=== PATIENT | female | born 1960 | race Caucasian/White ===

== ENCOUNTER → 2023-11-29 07:32 | Outpatient (REF) | payer BC, SELFPAY ==
[2023-11-29 08:25] LABS: % Basophils 1.2 % (0-2); % Eosinophils 2.8 % (0-6); % Immature Granulocytes 0.4 % (0-0.5); % Lymphocytes 35.1 % (20.5-51.1); % Monocytes 9.3 % (1.7-9.3); % Neutrophils 51.2 % (42.2-75.2); Absolute Basophils 0.1 10^3/uL (0-0.2); Absolute Eosinophils 0.1 10^3/uL (0-0.7); Absolute Lymphocytes 1.7 10^3/uL (1.2-3.4); Absolute Monocytes 0.5 10^3/uL (0.1-0.6); Absolute Neutrophils 2.5 10^3/uL (1.4-6.5); Hematocrit 41.5 % (37.0-47.0); Hemoglobin 13.8 g/dL (12.0-16.0); Mean Corp Hgb Conc. 33.3 g/dL (33.0-37.0); Mean Corpuscular Hgb 28.2 pg (27.0-31.0); Mean Corpuscular Volume 84.7 fL (81.0-99.0); Mean Platelet Volume 11.2 fL (7.4-10.4); Nucleated Red Blood Cells % 0 %; Platelet Count 205 10^3/uL (130-400); Red Cell Dist. Width 14.5 % (11.5-14.5); White Blood Cell Count 4.9 10^3/uL (4.8-10.8)
[2023-11-29 08:57] LABS: ALT (SGPT) < 10 U/L (0-35); AST (SGOT) 28 U/L (14-36); Albumin 4.3 g/dl (3.5-5.0); Alkaline Phosphatase 62 U/L (38-126); Blood Urea Nitrogen 22 mg/dl (7-17); Carbon Dioxide 31 mmol/L (22-30); Chloride 102 mmol/L (98-107); Glucose 85 mg/dl (70-99); HDL Cholesterol 82 mg/dl; LDL Cholesterol, Calculated 115 mg/dl; Potassium 4.5 mmol/L (3.5-5.1); Sodium 142 mmol/L (135-145); Total Bilirubin 0.9 mg/dl (0.2-1.3); Total Cholesterol 210 mg/dl (50-199); Total Protein 6.7 g/dl (6.3-8.2); Triglyceride 65 mg/dl (10-149); Very Low Density Lipoprotein 13 mg/dl (0-30); eGFR 56.81
[2023-11-29 09:25] LABS: TSH Reflex To Free T4 4.58 uIU/ml (0.47-4.68)
== END ==
LOC: REG 07:32
PROVIDERS: ATTENDING PHYSICIAN Family Medicine
DX: Z13.0 Encounter for screening for diseases of the blood and blood-forming organs and certain disorders involving the immune mechanism (principal); Z13.29 Encounter for screening for other suspected endocrine disorder; Z13.228 Encounter for screening for other metabolic disorders; Z13.220 Encounter for screening for lipoid disorders; Z13.1 Encounter for screening for diabetes mellitus
CPT/HCPCS: 36415; 80053; 80061; 84443; 85025

== ENCOUNTER → 2024-02-24 06:40 | Day surgery (SDC) | payer BC, SELFPAY | LOC: GI 06:40 | PROVIDERS: ATTENDING PHYSICIAN Internal Medicine | DX: Z12.11 Encounter for screening for malignant neoplasm of colon (principal); D12.2 Benign neoplasm of ascending colon; D12.3 Benign neoplasm of transverse colon; D12.5 Benign neoplasm of sigmoid colon; K57.30 Diverticulosis of large intestine without perforation or abscess without bleeding; K62.89 Other specified diseases of anus and rectum; K64.9 Unspecified hemorrhoids; Z86.0101 Personal history of adenomatous and serrated colon polyps | CPT/HCPCS: 45385; 45380; 88305 ==

== ENCOUNTER → 2024-06-02 14:08 | Outpatient (REF) | payer BC, SELFPAY | LOC: WDC 14:08 | PROVIDERS: ATTENDING PHYSICIAN Family Medicine | DX: Z12.31 Encounter for screening mammogram for malignant neoplasm of breast (principal) | CPT/HCPCS: 77063; 77067 ==

== ENCOUNTER → 2024-11-28 09:10 | Outpatient (REF) | payer BC, SELFPAY ==
[2024-11-28 09:48] LABS: Hematocrit 41.9 % (37.0-47.0); Hemoglobin 13.7 g/dL (12.0-16.0); Mean Corp Hgb Conc. 32.7 g/dL (33.0-37.0); Mean Corpuscular Volume 87.1 fL (81.0-99.0); Nucleated Red Blood Cells % 0 %; Platelet Count 208 10^3/uL (130-400); Red Cell Dist. Width 13.2 % (11.5-14.5)
[2024-11-28 14:50] LABS: ALT (SGPT) 29 U/L (0-35); AST (SGOT) 89 U/L (14-36); Albumin 4.6 g/dl (3.5-5.0); Alkaline Phosphatase 65 U/L (38-126); Blood Urea Nitrogen 19 mg/dl (7-17); Calcium 10.3 mg/dl (8.4-10.2); Carbon Dioxide 30 mmol/L (22-30); Chloride 105 mmol/L (98-107); Glucose 83 mg/dl (70-99); HDL Cholesterol 93 mg/dl; LDL Cholesterol, Calculated 110 mg/dl; Potassium 5.1 mmol/L (3.5-5.1); Sodium 139 mmol/L (135-145); Total Protein 7.4 g/dl (6.3-8.2); Very Low Density Lipoprotein 8 mg/dl (0-30); eGFR > 60.00
== END ==
LOC: REG 09:10
PROVIDERS: ATTENDING PHYSICIAN Family Medicine
DX: Z13.228 Encounter for screening for other metabolic disorders (principal)
CPT/HCPCS: 36415; 80053; 80061; 84443; 85025

== ENCOUNTER 2024-12-11 13:16 | Day surgery (SDC) | payer BC, SELFPAY ==
[2024-12-11] VITALS (7 sets, daily range): BP systolic 119–148; BP diastolic 67–95; BMI 26.1
--- NOTE | 2024-12-11 08:49 | ED.GENMED ---
History of Present Illness
General
Chief Complaint: Abdominal Pain
Source: patient
Exam Limitations: none
Time Seen by Provider: 12/11/24 08:35
Nursing documentation reviewed up to this point in time: agreed with
History of Present Illness
History of Present Illness:
Note:
CHIEF COMPLAINT(S)
Abdominal pain starting last night.
HISTORY OF PRESENT ILLNESS
The patient is a 64-year-old female presenting with abdominal pain. She reports that the pain began last night, initially presenting as discomfort or a gas-like sensation located in the upper abdomen. The pain gradually migrated downward, reflecting
a pattern that led her to describe the night as 'miserable.' The patient experienced nausea and a lack of appetite but denies having had a fever. She consulted medical help due to persistent symptoms.
PLAN
1. Order laboratory tests to investigate the cause of the abdominal pain.
2. Administer antibiotics as a precaution and initiate further treatment after verifying results.
3. Order an abdominal ultrasound to evaluate the source of the pain. In case ultrasound results are inconclusive, a computed tomography (CT) scan may be considered.
4. Consult with a surgeon to discuss and plan further management, especially if immediate surgical intervention might be necessary based on imaging results.
5. Provide medications for pain, nausea, and anxiety as needed.
6. Initiate intravenous fluid therapy for hydration and symptom management.
7. Monitor patient closely and reassess following imaging and lab results.
DIFFERENTIAL DIAGNOSIS
The Differential Diagnosis includes, in no particular order and is not limited to:
- Acute cholecystitis
- Peptic ulcer disease
- Pancreatitis
- Gastroenteritis
- Diverticulitis
- Bowel obstruction
- Appendicitis
- Irritable bowel syndrome
- Gastritis
- Hernia
Physical Exam
General: no apparent distress, not acutely ill
Neck: supple. no meningeal signs. normal posterior pharynx
Heart: s1/s2 regular rate and rhythm, no murmur. equal radial
pulses.
HEENT: Pupils equal round reactive to light, EOMI
Lungs: no acute respiratory distress. clear bilaterally
Abdomen: normal bowel sounds. Right lower quadrant tenderness at McBurney's point. No CVAT
Neuro: alert and oriented. no focal neurological deficits cranial nerves II through XII intact
Skin: no rash
Psychiatric: well kept. interactive and cooperative
Extremities: no edema. good distal pulses
CARE-UPDATE
12/11/24 - :51
Zosyn ordered.
CARE-UPDATE
12/11/24 - :51
CT scan requested following discussion with Dr. Lujan.
Disposition:
SUMMARY OF ENCOUNTER
The patient, a 64-year-old female, presented to the emergency department with acute abdominal pain, which was diagnosed as acute appendicitis. After evaluation and discussion with Dr. Lujan, it was determined that the patient required an
appendectomy. The decision was made to manage the patient surgically due to the nature and severity of the condition. The patient received medications for pain control and IV fluids to maintain stability.
DISPOSITION
The patient will go directly to the operating room (OR) for an appendectomy.
EMERGENCY TREATMENTS ADMINISTERED
IV Lactated Ringers was administered.
Pain medications were given; specific name and dosage not mentioned.
MANAGEMENT OF THE PATIENTS CARE WAS DISCUSSED WITH
Discussion of management with Dr. Lujan, the surgeon, regarding the urgent need for surgical intervention.
MEDICAL DECISION MAKING
- Complexity of Data Reviewed:
Chronic conditions affecting care include Acute cholecystitis, Peptic ulcer disease, Pancreatitis, Gastroenteritis, Diverticulitis, Bowel obstruction, Appendicitis, Irritable bowel syndrome, Gastritis, Hernia.
- Data:
Category 3: Discussion of management with Dr. Lujan about surgical intervention for acute appendicitis.
DIAGNOSIS
Acute Appendicitis (ICD-10-CM K35.80)
Past History
Past History
ED Past Medical History: None
ED Past Surgical History: None
Social History
Tobacco: Non-smoker
Alcohol: Occasional
Drug: None
Personal:
Living: with family
Employment: Employed
Family History
Family History: Other (Noncontributory)
Phy Exam
Physical Exam
Physical Exam:
.
Course
Orders/Labs/Results
Orders:
Orders
12/11/24 Breakfast
NPO
Allow oral meds: No
Allow clear liquids: No
NPO with Ice Chips: No
12/11/24 08:44
IV Insert/Care/Rem.- Treatment PRN
Lactated Ringers [Lr] 1,000 ml IV BOLUS
Piperacillin/Tazo 4.5 Gram [Zosyn] 4.5 gram in 100 ml IV NOW
12/11/24 08:52
CT Abd/pelvis W Iv Cont Urgent
Comment:
Reason For Exam: RLQ pain since last night
12/11/24 08:56
Type+Screen Urgent
Complete Blood Count/With Diff Urgent
Comprehensive Metabolic Panel Urgent
Lipase Urgent
Abnormal Lab Results
12/11/24
08:56
MPV 11.6 H fL
(7.4-10.4)
Absolute Monos (auto) 0.9 H 10^3/uL
(0.1-0.6)
Lymphocytes % 18.3 L %
(20.5-51.1)
Monocytes % 9.7 H %
(1.7-9.3)
BUN 18 H mg/dl
(7-17)
Creatinine 1.1 H mg/dL
(0.6-1.0)
Total Bilirubin 1.5 H mg/dl
(0.2-1.3)
12/11/24 08:56
12/11/24 08:56
Vital Signs
Initial and Last Documented VS:
Initial Vital Signs
Temp Pulse Resp BP Pulse Ox
98 F 73 16 148/95 98
12/11/24 08:23 12/11/24 08:23 12/11/24 08:23 12/11/24 08:23 12/11/24 08:23
Last Documented Vital Signs
Temp Pulse Resp BP Pulse Ox
98 F 73 16 148/95 98
12/11/24 08:23 12/11/24 08:23 12/11/24 08:23 12/11/24 08:23 12/11/24 08:51
*Pulse Oximetry
SaO2: 98
Oxygen Mode of Delivery: Room air
Patient hypoxic: no
*Critical Care Note
Total Time (30-74mins, 75-104mins- exclusive of procedures): 30
comment:
Critical care statement: A total of 30 minutes of critical care time was provided for this patient. This includes management of unstable vital signs, evaluation of the patient at bedside, reviewing the patient's pertinent medical records, discussion
with consultants, review of old EKGs and review of pertinent medical records. This time with separate from time utilized to perform the aforementioned documented procedures
ED Attending Note
-
Portions of this chart may have been created with voice recognition software.� Occasional wrong word or��sound alike� substitutions may have occurred due to the inherent limitations of voice recognition software.
Discharge Plan
Departure
Patient Disposition: OR
Date of Disposition: 12/11/24
Time of Disposition: 11:23
Admit to: OR
Presentation/result/management discussed w/ accepting /DO: Tai General surgery
Condition: Good
Discharge Problem:
Acute appendicitis
Prescriptions:
No Action
No Current Medications
0
Referrals:
Cele Castellanos DO [Family Provider, Family Practice]
Interventions
Interventions:
*Risk Screen - Suicide Last Done: 12/11/24 08:23
*Neglect/Abuse Screening Last Done: 12/11/24 08:23
OA-Fsnabv-Wbwytnneij Assessment Last Done: 12/11/24 09:02
Discharge Date and Time
Print Language: UGANDAN
[2024-12-11] MEDS: LR 1000 IV (08:58)
[2024-12-11] MEDS: ZOSYN 100 IV (08:58)
[2024-12-11 09:32] LABS: Hematocrit 42.1 % (37.0-47.0); Hemoglobin 14.0 g/dL (12.0-16.0); Mean Corp Hgb Conc. 33.3 g/dL (33.0-37.0); Mean Corpuscular Volume 85.9 fL (81.0-99.0); Nucleated Red Blood Cells % 0 %; Platelet Count 206 10^3/uL (130-400); Red Cell Dist. Width 13.4 % (11.5-14.5)
[2024-12-11 09:33] LABS: ALT (SGPT) < 10 U/L (0-35); AST (SGOT) 22 U/L (14-36); Albumin 4.4 g/dl (3.5-5.0); Alkaline Phosphatase 68 U/L (38-126); Blood Urea Nitrogen 18 mg/dl (7-17); Calcium 10.0 mg/dl (8.4-10.2); Carbon Dioxide 29 mmol/L (22-30); Chloride 103 mmol/L (98-107); Estimated Creatinine Clearance 45 ml/min; Glucose 96 mg/dl (70-99); Lipase 41 U/L (23-300); Potassium 4.8 mmol/L (3.5-5.1); Sodium 138 mmol/L (135-145); Total Protein 7.3 g/dl (6.3-8.2); eGFR 56.46
--- NOTE | 2024-12-11 11:20 | W.SUR.PREOP ---
Pre-Operative Surgical Note
-
I have examined this patient prior to the performance of the scheduled procedure.
The patient's condition is unchanged from the time of the current History and
Physical and the patient is able to undergo the scheduled procedure.
--- NOTE | 2024-12-11 11:22 | HPS.HSE ---
Family Physician
-
Family Physician: Cele Castellanos
Chief Complaint
-
Right lower quadrant abdominal pain
History of Present Illness
64 year old female presents with a one-day history of right lower quadrant abdominal pain. The pain began in the upper mid-abdomen and later migrated to the right lower quadrant, associated with nausea, and anorexia. She denies presence of fever and
vomiting. Despite her symptoms, the patient went to work. 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 CT scan reviewed consistent with
acute appendicitis.
Medical History
Past Medical History
Past Medical History: Reports None
Past Surgical History: Reports None
Social History
Tobacco: Non-smoker
Alcohol: Occasional
Drug: None
Personal:
Living: With Family
Employment: Employed
Family History
Family History: Not pertinent
Allergies / Home Medications
Allergies reflects when Allergies were last updated in [facility].
Home Medications with original date entered in [facility]
Allergy/Medication List:
Allergies
Allergy/AdvReac Type Severity Reaction Status Date / Time
No Known Allergies Allergy Verified 12/11/24 08:23
Home Medications
No Meds [No Current Medications] 12/11/24
Review of Systems
-
A 12 point ROS was completed and negative except as noted: Yes
Physical Exam
Vital Signs
Vital Signs
Temp Pulse Resp BP Pulse Ox
98 F 73 16 148/95 98
12/11/24 08:23 12/11/24 08:23 12/11/24 08:23 12/11/24 08:23 12/11/24 08:51
Physical Exam
General: Well Developed and No Apparent Distress
HEENT: NormoCephalic
Respiratory: Non Labored Respirations
GI: Soft, Non Distended and Tender (Right lower quadrant tender upon application of pressure)
Musculoskeletal: No Edema
Skin: Warm
Neuro: AO x 3
Psych: Calm
Laboratory Results
-
12/11/24 08:56
12/11/24 08:56
Laboratory Results
Total Bilirubin 1.5 mg/dl (0.2-1.3) H 12/11/24 08:56
AST 22 U/L (14-36) 12/11/24 08:56
ALT < 10 U/L (0-35) 12/11/24 08:56
Alkaline Phosphatase 68 U/L (38-126) 12/11/24 08:56
Lipase 41 U/L (23-300) 12/11/24 08:56
Data Reviewed
-
CT Scan: Image Personally Visualized and interpreted (by attending surgeon ), Report Reviewed by me (and attending surgeon) and Discussed with Patient
Impression/Plan
-
IMPRESSION: 64 year old female presenting with 1 day history of right lower quadrant abdominal pain, associated with nausea and anorexia. CT, blood work, and exam are all consistent with acute appendicitis.
PLAN:
Plan for laparoscopic appendectomy in the OR today.
Keep N.P.O
IV fluids
IV antibiotics.
Risks/Benefits/Alternatives, expected postoperative course and possible complications (bleeding, infection, injury to surrounding structures, acute/chronic pain) discussed at length. Patient wishes to proceed with surgery. All questions answered.
Consent obtained.
--- NOTE | 2024-12-11 15:12 | W.IMMPOSTOP ---
Surgical Immed Post Op Note
-
Primary Surgeon: Ed Lujan MD
Assisting Surgeon: None
Pre-op Diagnosis: Acute appendicitis
Post-op Diagnosis: Same
Procedure Performed: Laparoscopic appendectomy
Anesthesia Type: General
Specimen / Cultures: Appendix
Estimated Blood Loss: 3 cc
Complications: None
Operative Findings: Inflamed benign suppurative acute appendicitis. Base clean ligated with a 0 PDS Endoloop x 2.
POST OP PLAN:
Imaging: None
Labs: Routine AM
Diet: Advance to Regular as tolerated
Analgesia: Tylenol 650mg q6 Lisa, Dilaudid 0.5mg q2h PRN
Neuro/vascular checks: Per unit protocol
AC/AP: Hold Therapeutic AC, Ok for DVT PPx
Activity: Ad Juliane
Wound/Incisions/Drains: Routine
Abx: None
Dispo: updated. Will DC home without antibiotics.
--- NOTE | 2024-12-11 15:14 | OR.RPT ---
Operative Report
Operative Report
Patient Name: Yumiko Roland
: 1960
Date of Operation: 12/11/2024
Preoperative Diagnosis: Acute Appendicitis
Postoperative Diagnosis: Same
Procedure(s):
Laparoscopic Appendectomy
Surgeon(s):
Dr. Lujan
Director Presales(s):
None
Anesthesia: General
Estimated Blood Loss: 3 cc
Urine Output: None
Drains/Lines/Implants: None
Specimens:
1. Appendix
HPI/Surgical Indications:
This is a 64-year-old female who presents with a 1 day history of abdominal pain. Exam, labs and imaging are consistent with acute appendicitis. Risks/Benefits/Alternatives were discussed at length, and the patient agreed to proceed with surgery.
Operative Findings: Three 5 mm ports. Nonperforated, inflamed and suppurative appendicitis. Base clean, ligated with a 0 PDS Endoloop x 2.
Procedure Description:
The patient was placed in the supine position, with the left arm tucked, and general anesthesia was induced. The abdomen was prepared and draped in a sterile fashion so as to expose the entire abdomen. A surgical time out was taken. Abdominal access
was obtained with a 5 mm infra-umbilical Bernardo Entry. After confirming no injury on entrance, two additional 5mm ports were placed in the suprapubic area just off midline and in the left lower quadrant. The patient was placed in Trendelenberg with
the right slightly up . The appendix was identified and a window was created in the mesoappendix. The appendix was inflamed but not perforated. Using a laparoscopic bipolar energy device, the meso appendix was divided. The base of the appendix
appeared uninvolved and was ligated/divided using two 0-PDS Endoloops and the energy device. The appendix was placed in a specimen retrieval bag. Hemostasis was confirmed and the ports were removed under visualization. The specimen was passed off
the field. The umbilical port was closed with a [id number] 0-PDS and the skin for all three ports was closed with interrupted monocryls and covered with dermabond. The patient was awoken from anesthesia in good condition and transported to the
recovery area.
I was the attending physician and performed the procedure with no assistance. I was present for all portions of the case.
Ed Lujan MD
== END 2024-12-11 16:49 | disposition home or self-care (01) ==
LOC: SDS 13:16
PROVIDERS: ATTENDING PHYSICIAN Surgery; EMERGENCY PHYSICIAN Emergency Medicine; FAMILY PHYSICIAN Family Medicine
DX: K35.80 Unspecified acute appendicitis (principal)
CPT/HCPCS: 44970; 74177; 80053; 83690; 85025; 86850; 86900; 86901; 88304; 96374; 99291; Q9967

== ENCOUNTER → 2024-12-28 15:01 | Outpatient (REF) | payer BC, SELFPAY | LOC: PAVMRI 15:01 | PROVIDERS: ATTENDING PHYSICIAN Specialist; FAMILY PHYSICIAN Family Medicine | DX: M25.511 Pain in right shoulder (principal) | CPT/HCPCS: 73221 ==

== ENCOUNTER 2025-03-09 06:08 | Day surgery (SDC) | payer BC, SELFPAY ==
[2025-02-23 09:22] LABS: Blood Urea Nitrogen 13 mg/dl (7-17); Calcium 9.8 mg/dl (8.4-10.2); Carbon Dioxide 32 mmol/L (22-30); Chloride 103 mmol/L (98-107); Glucose 85 mg/dl (70-99); Potassium 4.4 mmol/L (3.5-5.1); Sodium 141 mmol/L (135-145); eGFR > 60.00
[2025-02-23 13:37] VITALS: BMI 23.7
[2025-03-09] VITALS (9 sets, daily range): BP systolic 118–143; BP diastolic 74–98; BMI 23.7
[2025-03-09] MEDS: TYLENOL 1000 MG PO (07:40)
[2025-03-09] MEDS: CELEBREX 200 MG PO (07:40)
== END 2025-03-09 11:15 | disposition home or self-care (01) ==
LOC: SDS 06:08
PROVIDERS: ATTENDING PHYSICIAN Specialist; FAMILY PHYSICIAN Physician Assistant
DX: M75.112 Incomplete rotator cuff tear or rupture of left shoulder, not specified as traumatic (principal); M19.012 Primary osteoarthritis, left shoulder; M75.42 Impingement syndrome of left shoulder
CPT/HCPCS: 29824; 80048; 93005